=== PATIENT | female | born 1940 | race Caucasian/White ===

== ENCOUNTER → 2016-04-01 | Outpatient (CLI) | payer OTHER ==
[~2016-04-01] MED LIST: AMIO200 PO; ASPI81TA82 PO; CHOL1CAP6 PO; CO Q100C9 PO; DOCU1CAP39 PO; LEVO50TA4 PO; LOVA40TA PO; METO25 PO; OMEP40CA2 PO; ROBA500T PO; Z.0.OXYGENDME NC
[2016-04-01 11:01] LABS: BLOOD GAS BASE EXCESS -1.4 mmol/L (-2-2); BLOOD GAS CARBOXYHEMOGLOBIN 1.3 % (0-4); BLOOD GAS HCO3 22 mmol/L (22-26); BLOOD GAS METHEMOGLOBIN 0.9 % (0-2); BLOOD GAS O2 HGB SATURATION 95 % (90-100); BLOOD GAS OXYGEN CONTENT 16.8 Vol % (12.0-20.0); BLOOD GAS PCO2 34 mmHg (38-42); BLOOD GAS PO2 86 mmHg (61-120); BLOOD GAS TOTAL HGB 12.5 G/DL (12.0-16.0); CRITICAL VALUE NO; DRAW SITE RT RADIAL; FIO2 21 %; NUMBER OF ARTERIAL PUNCTURES 1; STAT NO; TEMP CORR TO 98.6; ULNAR PULSE PRESENT
--- NOTE | 2016-04-21 10:49 | RSPPFT ---
DATE OF PROCEDURE: 04/01/16 COMMENTS: Spirometry demonstrates an FEV1 of 1.5 at 77% of predicted, FVC of 2.1 at 73%, FEF 25-75 at 52% of predicted. Post-bronchodilator study demonstrated minimal improvements in the FEF 25-75. Lung volumes demonstrated a raised RVTLC ratio suggesting hyperinflation with air trapping. Diffusion capacity is normal. Flow volume loops demonstrate no significant abnormalities. Room air arterial blood gas study shows pH of 7.43, PCO2 of 34, PO2 of 86, O2 Saturation of 95% with a normal acid based balance. IMPRESSION: 1. Mild to moderate obstructive disease. 2. Minimal response to use of bronchodilator. 3. Normal diffusion capacity.
== END ==
LOC: HRSP 09:33
PROVIDERS: ATTEND Family Medicine
DX: R05 Cough (principal)
CPT/HCPCS: 36600; 82805; 94060; 94726; 94729

== ENCOUNTER 2016-06-02 16:20 | Emergency (ER) | payer OTHER ==
[~2016-06-02] VITALS: Ht 167.6 cm; Wt 65.0 kg
[~2016-06-02 16:20] MED LIST changes: -ROBA500T PO
[2016-06-02 16:25] VITALS: BP 139/63; PULSE 95; RESP 16; TEMP 97.9; O2SAT 98
[2016-06-02] MEDS ORDERED: ROBA500T PO (18:23)
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
== END 2016-06-02 18:40 | disposition home or self-care (01) ==
LOC: NEPB 16:20
DX: S16.1XXA Strain of muscle, fascia and tendon at neck level, initial encounter (principal); I10 Essential (primary) hypertension; E78.00 Pure hypercholesterolemia, unspecified; V43.62XA Car passenger injured in collision with other type car in traffic accident, initial encounter; Y93.9 Activity, unspecified; Y92.410 Unspecified street and highway as the place of occurrence of the external cause
CPT/HCPCS: 99282